=== PATIENT | male | born 1995 | race Caucasian/White ===

== ENCOUNTER 2017-11-16 02:39 | Inpatient (IN) | payer OTHER ==
[2017-11-16] VITALS (12 sets, daily range): BP systolic 124–141; BP diastolic 63–77; PULSE 57–90; RESP 16–22; TEMP 97.2–98.9; O2SAT 93–99
[~2017-11-16] VITALS: Ht 180.3 cm; Wt 71.6 kg
[2017-11-16] MEDS ORDERED: MORPHINE SULFATE 4 MG/ML INJ ONE ×2 (02:45→02:56)
[2017-11-16] MEDS ORDERED: LIDOCAINE 1%/EPINEPHrine 1:100,000 SOLN 30 ML VIAL ONE (02:45)
[2017-11-16] MEDS ORDERED: DIPHTH/TETANUS/ACEL PERTUSSIS (BOOSTER) 0.5 ML VIAL/PFS IM ONE (02:46)
[2017-11-16] MEDS ORDERED: ceFAZolin 2 GM PREMIX 50 ML ONE (02:46)
[2017-11-16] MEDS ORDERED: ONDANSETRON HCL 4 MG/2 ML VIAL ONE (02:46)
[2017-11-16 03:06] LABS: AUTOMATED NEUTROPHIL # 6.4 TH/MM3 (1.8-7.7); BASOPHIL # 0.1 TH/MM3 (0-0.2); BASOPHIL % 0.6 % (0.0-2.0); EOSINOPHIL # 0.1 TH/MM3 (0-0.4); EOSINOPHIL % 0.8 % (0.0-4.0); HEMATOCRIT 41.3 % (39.0-51.0); HEMOGLOBIN 14.4 GM/DL (13.0-17.0); LYMPH % 34.3 % (9.0-44.0); LYMPHOCYTE # 3.8 TH/MM3 (1.0-4.8); MEAN CELL VOLUME 87.7 FL (80.0-100.0); MEAN CORPUSCULAR HEMOGLOBIN 30.7 PG (27.0-34.0); MEAN PLATELET VOLUME 10.1 FL (7.0-11.0); MONO % 5.9 % (0.0-8.0); MONOCYTE # 0.6 TH/MM3 (0-0.9); NEUT % 58.4 % (16.0-70.0); PLATELET COUNT 168 TH/MM3 (150-450); RED BLOOD COUNT 4.71 MIL/MM3 (4.50-5.90); RED CELL DISTRIBUTION WIDTH 13.3 % (11.6-17.2)
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
[2017-11-16 03:18] LABS: INTERNATIONAL NORMALIZED RATIO 1.1 RATIO; PROTHROMBIN TIME - PATIENT 10.9 SEC (9.8-11.6)
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
[2017-11-16] MEDS ORDERED: IOHEXOL 350 MG/ML 10 ML VIAL (for RAD DIAG) IVCONTRAST ONE (03:29)
[2017-11-16] MEDS ORDERED: ENALAPRILAT 1.25 MG/ML VIAL IV PUSH PRN (03:30)
[2017-11-16] MEDS ORDERED: MAGNESIUM HYDROXIDE SUSP 30 ML CUP PO PRN (03:30)
[2017-11-16] MEDS ORDERED: SODIUM CHLORIDE 0.9% FLUSH 10 ML FLUSH IV FLUSH PRN (03:30)
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
[2017-11-16] MEDS: PANTOPRAZOLE SODIUM 40 MG VIAL IVP SCH (05:19)
[2017-11-16] MEDS: SODIUM CHLOR 0.9% 1000 ML INJ 1,000 ML IV SCH ×3 (05:20→22:54)
[2017-11-16] MEDS: MORPHINE SULFATE 2 MG/ML SYRINGE IV PUSH PRN ×3 (05:22→16:26)
[2017-11-16] MEDS: ACETAMINOPHEN/HYDROcodone 325 MG/5 MG TAB PO PRN ×3 (07:44→20:09)
[2017-11-16] MEDS: MULTIVITAMIN INJ 10 ML, THIAMINE INJ 100 MG, FOLIC ACID INJ 1 MG in SODIUM CHLORID 0.9%... IV SCH (08:30)
[2017-11-16] MEDS: DOCUSATE SODIUM 50 MG/SENNA 8.6 MG TAB PO SCH ×2 (08:30→20:12)
[2017-11-16] MEDS ORDERED: PERI PO (10:29)
[2017-11-16] MEDS ORDERED: MAGN30S PO (10:29)
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
[2017-11-16] MEDS: METHOCARBAMOL 500 MG TAB PO SCH ×2 (14:32→22:53)
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
--- NOTE | 2017-11-16 18:23 | MP ---
cc: Wilber Meyer MD DATE OF OPERATION: 11/16/2017 DATE OF PROCEDURE: 11/16/2017 PREOPERATIVE DIAGNOSIS: Right pneumothorax. POSTOPERATIVE DIAGNOSIS: Right pneumothorax. PROCEDURE PERFORMED: Placement of right chest tube 28-Sudanese. SURGEON: Wilber Meyer MD ANESTHESIA: Local and sedation. COMPLICATIONS: None. DESCRIPTION OF PROCEDURE: In the trauma bay, the patient's right chest was prepped and draped sterilely, 1% lidocaine was used to anesthetize the skin and subcutaneous tissue. The patient was given 2 mg of Versed. A skin incision was made in the anterior axillary line at the level of the nipple. Using blunt dissection, the intercostal muscle was encountered. Using a Lucille clamp, the pleural space was entered. There was a gay of air. A 28-Sudanese chest tube was placed in the pleural space. It was connected to the Pleur-Evac and secured to the chest wall with 0 silk suture. An occlusive dressing was placed. The patient tolerated the procedure well. Wilber Meyer MD JLGaby/KD , 05:38 PM , 06:21 PM
[2017-11-16] MEDS: ONDANSETRON HCL 4 MG/2 ML VIAL IV PUSH PRN (20:03)
[2017-11-17] VITALS (7 sets, daily range): BP systolic 107–146; BP diastolic 56–92; PULSE 59–76; RESP 16–19; TEMP 97.6–98.4; O2SAT 96–98
[2017-11-17] MEDS: MORPHINE SULFATE 2 MG/ML SYRINGE IV PUSH PRN (02:03)
[2017-11-17] MEDS: ONDANSETRON HCL 4 MG/2 ML VIAL IV PUSH PRN (02:03)
[2017-11-17] MEDS: MULTIVITAMIN INJ 10 ML, THIAMINE INJ 100 MG, FOLIC ACID INJ 1 MG in SODIUM CHLORID 0.9%... IV SCH (04:39)
[2017-11-17] MEDS: PANTOPRAZOLE SODIUM 40 MG VIAL IVP SCH (04:39)
[2017-11-17] MEDS: ACETAMINOPHEN/HYDROcodone 325 MG/5 MG TAB PO PRN ×5 (04:47→22:09)
[2017-11-17 06:15] LABS: AUTOMATED NEUTROPHIL # 9.1 TH/MM3 (1.8-7.7); BASOPHIL % 0.2 % (0.0-2.0); EOSINOPHIL # 0.1 TH/MM3 (0-0.4); EOSINOPHIL % 1.1 % (0.0-4.0); HEMATOCRIT 38.2 % (39.0-51.0); HEMOGLOBIN 13.1 GM/DL (13.0-17.0); LYMPH % 12.9 % (9.0-44.0); LYMPHOCYTE # 1.5 TH/MM3 (1.0-4.8); MEAN CELL VOLUME 87.3 FL (80.0-100.0); MEAN CORPUSCULAR HEMOGLOBIN 29.9 PG (27.0-34.0); MEAN CORPUSCULAR HGB CONC 34.2 % (32.0-36.0); MEAN PLATELET VOLUME 10.6 FL (7.0-11.0); MONO % 9.6 % (0.0-8.0); MONOCYTE # 1.1 TH/MM3 (0-0.9); NEUT % 76.2 % (16.0-70.0); PLATELET COUNT 134 TH/MM3 (150-450); RED BLOOD COUNT 4.38 MIL/MM3 (4.50-5.90); RED CELL DISTRIBUTION WIDTH 13.2 % (11.6-17.2); WHITE BLOOD COUNT 11.9 TH/MM3 (4.0-11.0)
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
[2017-11-17] MEDS: METHOCARBAMOL 500 MG TAB PO SCH ×3 (06:46→20:39)
[2017-11-17 06:47] LABS: ALBUMIN 3.4 GM/DL (3.4-5.0); AST (GOT) 102 U/L (15-37); BICARBONATE 22.9 MEQ/L (21.0-32.0); BLOOD UREA NITROGEN 7 MG/DL (7-18); CALCIUM 7.9 MG/DL (8.5-10.1); CHLORIDE 106 MEQ/L (98-107); CREATININE 0.63 MG/DL (0.60-1.30); GLOMERULAR FILTRATION RATE 156 ML/MIN (>89); GLUCOSE,RANDOM 89 MG/DL (74-106); SODIUM (NA) 138 MEQ/L (136-145)
[2017-11-17 06:49] LABS: ALT (GPT) 190 U/L (12-78)
[2017-11-17 06:51] LABS: ALKALINE PHOSPHATASE 60 U/L (45-117); TOTAL BILIRUBIN ADULT 1.3 MG/DL (0.2-1.0); TOTAL PROTEIN 6.2 GM/DL (6.4-8.2)
[2017-11-17] MEDS: DOCUSATE SODIUM 50 MG/SENNA 8.6 MG TAB PO SCH ×2 (08:53→20:38)
[2017-11-17] MEDS: SODIUM CHLOR 0.9% 1000 ML INJ 1,000 ML IV SCH ×2 (09:24→19:24)
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
[2017-11-18] VITALS (9 sets, daily range): BP systolic 106–134; BP diastolic 54–83; PULSE 52–112; RESP 16–28; TEMP 97.9–100.7; O2SAT 89–99
[2017-11-18] MEDS: PANTOPRAZOLE SODIUM 40 MG VIAL IVP SCH ×2 (02:53→21:41)
[2017-11-18] MEDS: ACETAMINOPHEN/HYDROcodone 325 MG/5 MG TAB PO PRN ×4 (02:53→21:30)
[2017-11-18] MEDS: SODIUM CHLOR 0.9% 1000 ML INJ 1,000 ML IV SCH ×2 (04:26→15:24)
[2017-11-18] MEDS: MULTIVITAMIN INJ 10 ML, THIAMINE INJ 100 MG, FOLIC ACID INJ 1 MG in SODIUM CHLORID 0.9%... IV SCH (06:00)
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
[2017-11-18] MEDS: METHOCARBAMOL 500 MG TAB PO SCH ×4 (06:15→21:41)
[2017-11-18] MEDS: DOCUSATE SODIUM 50 MG/SENNA 8.6 MG TAB PO SCH ×2 (09:00→21:00)
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
[2017-11-18] MEDS ORDERED: ENOXAPARIN SODIUM 30 MG/0.3 ML SYRINGE SQ SCH (14:00)
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
[2017-11-19] VITALS (7 sets, daily range): BP systolic 123–143; BP diastolic 58–82; PULSE 62–83; RESP 18–20; TEMP 97.9–98.4; O2SAT 95–100
[2017-11-19] MEDS: SODIUM CHLOR 0.9% 1000 ML INJ 1,000 ML IV SCH (01:53)
[2017-11-19] MEDS: ACETAMINOPHEN/HYDROcodone 325 MG/5 MG TAB PO PRN ×2 (03:45→18:31)
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
[2017-11-19] MEDS: DOCUSATE SODIUM 50 MG/SENNA 8.6 MG TAB PO SCH ×2 (09:00→20:56)
[2017-11-19] MEDS: FAMOTIDINE 20 MG TAB PO SCH ×2 (09:00→20:56)
--- NOTE | 2017-11-19 10:49 | PD.ORT.PN ---
Objective Vitals Vital Signs Date Time Temp Pulse Resp B/P (MAP) Pulse Ox O2 Delivery O2 Flow Rate FiO2 11/19/17 08:00 98.1 67 18 133/82 (99) 99 11/19/17 03:49 97.9 62 18 143/64 (90) 95 11/19/17 00:17 65 11/19/17 00:00 98.0 78 18 127/58 (81) 99 11/18/17 22:45 77 11/18/17 21:19 98.2 72 18 121/74 (90) 94 11/18/17 16:00 98.5 72 16 109/63 (78) 98 11/18/17 11:43 98.1 71 16 113/57 (75) 99 I/O 11/18/17 11/18/17 11/18/17 11/19/17 11/19/17 11/19/17 07:00 15:00 23:00 07:00 15:00 23:00 Intake Total 960 ml 360 ml Balance 960 ml 360 ml Intake Oral 960 ml 360 ml # Voids 5 2 # Bowel Movements 0 0 Result Diagram: 11/17/17 0510 11/17/17 0510 Imaging Last 24 hours Impressions Chest X-Ray 11/19/17 0600 Signed Impressions: Service Date/Time: Sunday, November 19, 2017 06:30 - CONCLUSION: Interval removal of a chest tube. No residual pneumothorax is visualized. Dafne Shaver MD Ankle X-Ray 11/19/17 0000 Signed Impressions: Service Date/Time: Sunday, November 19, 2017 07:47 - CONCLUSION: Unremarkable examination of the left ankle. Dafne Shaver MD Assessment & Plan Assessment and Plan This patient has decided not to move forward with surgical management. We did have an operating room ready to move forward with surgery this morning. The patient refused to have surgery. The patient has requested a second opinion. We will request a second opinion by Dr. Rascon per the patient's request. Spike aHnnah MD Nov 19, 2017 10:49
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
[2017-11-19] MEDS: METHOCARBAMOL 500 MG TAB PO SCH ×2 (14:00→20:55)
[2017-11-19] MEDS ORDERED: IOHEXOL 350 MG/ML 10 ML VIAL (for RAD DIAG) IVCONTRAST ONE (19:04)
--- NOTE | 2017-11-19 19:44 | RADRPT ---
EXAM DATE/TIME: 11/19/2017 18:57 [facility] COMPARISON: CT ABDOMEN & PELVIS W CONTRAST, November 16, 2017, 3:12. INDICATIONS : Trauma; evaluate injuries, pain. IV CONTRAST: 100 cc Omnipaque 350 (iohexol) IV ; Cumulative dose for multiple exams. ORAL CONTRAST: No oral contrast ingested. RADIATION DOSE: 5.2 CTDIvol (mGy) ; Combined studies - Thorax/Abdomen/Pelvis MEDICAL HISTORY : Diabetes mellitus type 2. SURGICAL HISTORY : chest tube ENCOUNTER: Initial ACUITY: 3 days PAIN SCALE: 5/10 LOCATION: Bilateral abdomen TECHNIQUE: Volumetric scanning of the abdomen and pelvis was performed. Using automated exposure control and ad justment of the mA and/or kV according to patient size, radiation dose was kept as low as reasonably achievable to obtain optimal diagnostic quality images. DICOM format image data is available electro nically for review and comparison. FINDINGS: LOWER LUNGS: Mild evolving contusions in the lung bases are improved. LIVER: Central liver contusions are stable to slightly improved. No new acute hepatic findings. SPLEEN: Stable and intact. PANCREAS: Stable and intact. KIDNEYS: Stable and intact. ADRENAL GLANDS: Stable and intact. VASCULAR: Stable and intact. BOWEL/MESENTERY: Nondilated. No acute findings. ABDOMINAL WALL: Within normal limits. RETROPERITONEUM: Stable with no hematoma. BLADDER: Moderately distended. REPRODUCTIVE: Within normal limits. INGUINAL: There is no lymphadenopathy or hernia. MUSCULOSKELETAL: Stable CONCLUSION: Evolving/improving lung and hepatic contusions. No new acute findings. Nav Stockton MD on November 19, 2017 at 19:24 Board Certified Radiologist. This report was verified electronically.
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
[2017-11-20] VITALS: BP 113/82; PULSE 79; RESP 18; TEMP 98.8; O2SAT 99
[2017-11-20 04:00] VITALS: BP 129/74; PULSE 72; RESP 18; TEMP 98.1; O2SAT 93
[2017-11-20 05:19] LABS: AUTOMATED NEUTROPHIL # 5.5 TH/MM3 (1.8-7.7); BASOPHIL # 0.1 TH/MM3 (0-0.2); BASOPHIL % 0.9 % (0.0-2.0); EOSINOPHIL # 0.4 TH/MM3 (0-0.4); EOSINOPHIL % 4.8 % (0.0-4.0); HEMATOCRIT 40.3 % (39.0-51.0); HEMOGLOBIN 14.1 GM/DL (13.0-17.0); LYMPHOCYTE # 1.9 TH/MM3 (1.0-4.8); MEAN CELL VOLUME 86.7 FL (80.0-100.0); MEAN CORPUSCULAR HEMOGLOBIN 30.3 PG (27.0-34.0); MEAN CORPUSCULAR HGB CONC 34.9 % (32.0-36.0); MONO % 9.3 % (0.0-8.0); MONOCYTE # 0.8 TH/MM3 (0-0.9); PLATELET COUNT 171 TH/MM3 (150-450); RED BLOOD COUNT 4.65 MIL/MM3 (4.50-5.90); RED CELL DISTRIBUTION WIDTH 12.9 % (11.6-17.2); WHITE BLOOD COUNT 8.8 TH/MM3 (4.0-11.0)
[2017-11-20] MEDS: METHOCARBAMOL 500 MG TAB PO SCH ×3 (05:24→20:24)
[2017-11-20 05:34] LABS: ALBUMIN 3.7 GM/DL (3.4-5.0); ALT (GPT) 182 U/L (12-78); AST (GOT) 94 U/L (15-37); BICARBONATE 27.9 MEQ/L (21.0-32.0); BLOOD UREA NITROGEN 10 MG/DL (7-18); CALCIUM 8.6 MG/DL (8.5-10.1); CHLORIDE 107 MEQ/L (98-107); CREATININE 0.68 MG/DL (0.60-1.30); GLOMERULAR FILTRATION RATE 143 ML/MIN (>89); GLUCOSE,RANDOM 91 MG/DL (74-106); SODIUM (NA) 142 MEQ/L (136-145)
[2017-11-20 05:37] LABS: ALKALINE PHOSPHATASE 65 U/L (45-117); TOTAL BILIRUBIN ADULT 1.1 MG/DL (0.2-1.0)
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
[2017-11-20] MEDS ORDERED: HYDR-3580 PO (06:42)
[2017-11-20] MEDS ORDERED: WALKER/ADULT/FO1 MIS (06:42)
[2017-11-20 08:00] VITALS: BP 124/71; PULSE 76; RESP 19; TEMP 98.5; O2SAT 99
[2017-11-20] MEDS: DOCUSATE SODIUM 50 MG/SENNA 8.6 MG TAB PO SCH ×2 (08:22→20:24)
[2017-11-20] MEDS: FAMOTIDINE 20 MG TAB PO SCH ×2 (08:22→20:24)
[2017-11-20] MEDS ORDERED: SODIUM CHLOR 0.9% 250 ML INJ 250 ML ONE (10:21)
[2017-11-20] MEDS ORDERED: ceFAZolin INJ 1,000 MG VIAL ONE (10:21)
[2017-11-20] MEDS ORDERED: GENTAMICIN SULFATE 80 MG/2 ML VIAL ONE (10:21)
[2017-11-20] MEDS ORDERED: VANCOMYCIN HCL 1000 MG VIAL ONE (10:21)
[2017-11-20] MEDS ORDERED: ACETAMINOPHEN 1000 MG/100 ML 100 ML IV ONE (10:24)
--- NOTE | 2017-11-20 11:44 | PD.OP ---
cc: Austyn Wilburn MD Operative Report Date of Surgery: Nov 20, 2017 Preoperative Diagnosis: Displaced right ankle medial malleolus fracture Postoperative Diagnosis: Procedure: Open reduction internal fixation right ankle medial malleolus Anesthesia: General Surgeon: Austyn Wilburn [employer] Farmworker(s): TERRY Barbosa PA-C The surgical procedure was assisted by my physician supply assistant. My P.A. presence was necessary throughout this case for the manipulation and positioning of the surgical extremity. My P.A. was assisting me throughout the duration of this procedure. The skill set of a physician supply assistant was medically necessary to complete this procedure. During the surgical case the surgical asst was working at the back table and the physician supply assistant was directly assisting me. Operation and Findings: Implants used : ITS 4.0 cannulated screws Patient was seen and evaluated preoperatively and found to have a displaced right ankle fracture. Informed consent was obtained after a detailed discussion of risk and benefits of surgery. The operative site was marked. Patient was brought to the OR, placed on the OR table, and given IV sedation and general endotracheal anesthesia. IV antibiotics were given preoperatively. A timeout procedure was performed. The operative leg was prepped with alcohol followed by Hibiclens and draped in the usual sterile fashion. Attention was turned towards the medial malleolus. The medial malleolus supposed through a 3 cm incision. Saphenous vein was retracted. Fracture was visualized. Fracture was cleaned with curettes. Fracture was now reduced and keyed into anatomic alignment. K wires were used to hold provisional fixation. 2 guidepins for the 4.0 cannulated screws were placed in a retrograde fashion across the fracture. Fluoroscopy was used to confirm guidepin placement. Cannulated drill was placed over the guidepin. 2 appropriate length screws were now placed. Good compression was applied. Fluoroscopy confirmed well aligned fracture with well-placed hardware. Next, attention was turned to the syndesmosis. The syndesmosis was stressed. There was no widening of the syndesmosis with external rotation of the ankle. Incisions were thoroughly irrigated. The subcutaneous tissue was closed with 3- 0 Vicryl and the skin was closed with 3-0 nylon. Sterile dressings were applied. A well molded well-padded splint was applied. The patient was transferred to Recovery in stable condition. Needle and sponge counts were correct. Austyn Wilburn MD Nov 20, 2017 11:44
[2017-11-20] MEDS ORDERED: Post-op Orders (for Pharmacy) XX ONE (11:45)
[2017-11-20] MEDS ORDERED: MORPHINE SULFATE 4 MG/ML INJ IV PUSH PRN (11:45)
[2017-11-20] MEDS ORDERED: ONDANSETRON HCL 4 MG/2 ML VIAL IV ONE (12:00)
[2017-11-20] MEDS ORDERED: DEXAMETHASONE SOD PHOS 4 MG/ML VIAL IV ONE (12:00)
[2017-11-20] MEDS ORDERED: PROPOFOL 200 MG/20 ML AMP IV ONE (12:00)
[2017-11-20] MEDS ORDERED: LIDOCAINE HCL 1% PF 5 ML SYRINGE OTHER ONE (12:00)
[2017-11-20] MEDS ORDERED: PHENYLEPH/NS 1000 MCG/10 ML SYR IV ONE (12:00)
[2017-11-20] MEDS ORDERED: *MEPERIDINE 25 MG INJ VIAL PERIprocedural Use ONLY ONE (12:03)
[2017-11-20] MEDS ORDERED: DO NOT ADM ANY ANTICOAGULANT DRUGS PRN (12:05)
[2017-11-20] MEDS ORDERED: *morphine SULFATE 8 MG/ML PERIprocedure ONLY ONE (12:16)
[2017-11-20] MEDS: ACETAMINOPHEN/HYDROcodone 325 MG/5 MG TAB PO PRN ×2 (12:52→23:49)
[2017-11-20 14:00] VITALS: BP 143/71; PULSE 87; RESP 19; TEMP 98.6; O2SAT 99
--- NOTE | 2017-11-20 14:48 | RADRPT ---
EXAM DATE/TIME: 11/20/2017 11:34 [facility] COMPARISON: ANKLE RIGHT COMPLETE ([id number]), November 18, 2017, 17:01. INDICATIONS : Right ankle open reduction internal fixation. MEDICAL HISTORY : Diabetes mellitus type 2. SURGICAL HISTORY : Chest tube. ENCOUNTER: Initial ACUITY: 1 day PAIN SCORE: Non-responsive. LOCATION: Right ankle FINDINGS: Three view exam was performed of the right ankle. Displaced medial malleolar fracture seen previously has been successfully reduced and secured with 2 osseous spurs. Ankle mortise is restored. Fracture fragments are in excellent anatomic alignment. CONCLUSION: Open reduction and internal fixation of medial malleolar fracture as above. Jorge Luis Crystal MD on November 20, 2017 at 14:45 Board Certified Radiologist. This report was verified electronically.
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
[2017-11-20] MEDS ORDERED: ceFAZolin 2 GM PREMIX 50 ML IV SCH (19:00)
[2017-11-20 20:20] VITALS: BP 154/81; PULSE 112; RESP 16; TEMP 99; O2SAT 97
[2017-11-20] MEDS ORDERED: LACTATED RINGER'S 1000 ML IV PRN (23:00)
[2017-11-20] MEDS ORDERED: CHLORHEXIDINE GLUCONATE 2 % 1 PACK (2 CLOTHS) TOPICAL PRN (23:00)
[2017-11-20] MEDS ORDERED: POVIDONE IODINE 5% (ANTISEPSIS KIT) 4 APPLICATIONS EACH NARE PRN (23:00)
[2017-11-20] MEDS ORDERED: SODIUM CHLORID 0.9% 500 ML IV PRN (23:00)
[2017-11-21 00:20] VITALS: BP 131/73; PULSE 107; RESP 16; TEMP 98.7; O2SAT 98
[2017-11-21] MEDS: METHOCARBAMOL 500 MG TAB PO SCH (04:11)
[2017-11-21] MEDS: ACETAMINOPHEN/HYDROcodone 325 MG/5 MG TAB PO PRN (04:12)
[2017-11-21 04:20] VITALS: BP 140/89; PULSE 87; RESP 16; TEMP 98.1; O2SAT 96
--- NOTE | 2017-11-21 06:30 | PD.ORT.PN ---
Subjective Subjective Remarks Resting comfortably. States he was able to get up on the walker but was having left wrist pain. Objective Vitals Vital Signs Date Time Temp Pulse Resp B/P (MAP) Pulse Ox O2 Delivery O2 Flow Rate FiO2 11/21/17 04:20 98.1 87 16 140/89 (106) 96 11/21/17 00:20 98.7 107 16 131/73 (92) 98 11/20/17 20:20 99.0 112 16 154/81 (105) 97 11/20/17 14:00 98.6 87 19 143/71 (95) 99 11/20/17 12:15 78 18 130/62 (84) 100 Room Air 11/20/17 12:03 97.4 89 18 132/64 (86) 100 Room Air 11/20/17 08:00 98.5 76 19 124/71 (88) 99 I/O 11/20/17 11/20/17 11/20/17 11/21/17 11/21/17 11/21/17 07:00 15:00 23:00 07:00 15:00 23:00 Intake Total 800 ml 350 ml Output Total 30 ml Balance 770 ml 350 ml Intake Oral 350 ml Other 800 ml Estimated Blood Loss 30 ml # Voids 5 # Bowel Movements 0 Result Diagram: 11/20/17 0405 11/20/17 0405 Imaging Last 24 hours Impressions Chest X-Ray 11/19/17 0600 Signed Impressions: Service Date/Time: Sunday, November 19, 2017 06:30 - CONCLUSION: Interval removal of a chest tube. No residual pneumothorax is visualized. Dafne Shaver MD Ankle X-Ray 11/19/17 0000 Signed Impressions: Service Date/Time: Sunday, November 19, 2017 07:47 - CONCLUSION: Unremarkable examination of the left ankle. Dafne Shaver MD Objective Remarks RLE: +short leg splint intact and in good repair. nvi Assessment & Plan Assessment and Plan 1) Right Medial Malleolus Fx ORIF POD 1 -NWb -elevate Maintain splint X-rays today of left wrist If x-rays are negative of the wrist, patient is cleared to go to rehab Follow up with Dr. Rascon or NAY in 2 weeks Moises Vazquez Jr. Nov 21, 2017 06:30
[2017-11-21 08:00] VITALS: BP 139/85; PULSE 75; RESP 15; TEMP 98.7; O2SAT 99
[2017-11-21] MEDS: FAMOTIDINE 20 MG TAB PO SCH (08:43)
[2017-11-21] MEDS: DOCUSATE SODIUM 50 MG/SENNA 8.6 MG TAB PO SCH (08:43)
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
[2017-11-21] MEDS ORDERED: WHEEMIS3 (14:17)
[2017-11-21] MEDS ORDERED: HYDR-3288 PO (14:36)
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
== END 2017-11-21 15:22 | disposition home or self-care (01) | DRG 959 ==
LOC: NEPE 02:39 → NEDA 03:39 → N06A 04:52 → N06B 11-18 10:31 → N06A 11-18 10:37
PROVIDERS: ADMIT Surgery; ATTEND Surgery
PROC: 0W9930Z Drainage of Right Pleural Cavity with Drainage Device, Percutaneous Approach (ICD-10-PCS; 2017-11-16)
PROC: 0QSG04Z Reposition Right Tibia with Internal Fixation Device, Open Approach (ICD-10-PCS; principal; 2017-11-20 10:48)
DX: S82.51XA Displaced fracture of medial malleolus of right tibia, initial encounter for closed fracture (principal); S27.0XXA Traumatic pneumothorax, initial encounter; S36.112A Contusion of liver, initial encounter; S27.322A Contusion of lung, bilateral, initial encounter; S01.81XA Laceration without foreign body of other part of head, initial encounter; S20.219A Contusion of unspecified front wall of thorax, initial encounter; F17.200 Nicotine dependence, unspecified, uncomplicated; V47.5XXA Car driver injured in collision with fixed or stationary object in traffic accident, initial encounter; Y92.410 Unspecified street and highway as the place of occurrence of the external cause; Y93.9 Activity, unspecified; Y99.9 Unspecified external cause status; M25.532 Pain in left wrist; Z53.20 Procedure and treatment not carried out because of patient's decision for unspecified reasons
CPT/HCPCS: 32551; 70450; 70486; 71045; 71260; 72125; 72129; 72132; 72170; 73110; 73610; 74177; 76000; 80048; 80053; 85014; 85018; 85025; 85610; 85730; 86850; 86900; 86901; 90471; 90715; 94150; 96374; 96375; 99291; C1713; C9113; G0390; J0131; J0690; J1100; J1580; J1650; J2175; J2270; J2370; J2405; J3010; J3370; J3411; J7030; J7040; J7050; Q9967